=== PATIENT | female | born 1985 | race African-American/Black ===

== ENCOUNTER 2017-03-12 08:38 | Emergency (ER) | payer SELFPAY ==
[2017-03-12 08:50] VITALS: BP 118/76; PULSE 71; TEMP 98; BMI 26.6
[2017-03-12 09:52] LABS: BASOPHIL 0.5 % (0-2.0); EOSINOPHIL 0.9 % (0-4.5); MCHC 33.9 g/dl (32.0-36.0); MEAN CELL VOLUME 94.4 fl (80-96); MEAN PLT VOLUME 8.2 fl (7.5-11.1); PLATELET COUNT 268 K/MM3 (134-434); RDW 12.8 % (11.6-15.6); WHITE BLOOD COUNT 8.8 K/mm3 (4.0-10.0)
[2017-03-12 09:53] LABS: URINE APPEARANCE CLEAR; URINE BILIRUBIN NEGATIVE (NEGATIVE); URINE BLOOD 3+ (NEGATIVE); URINE COLOR YELLOW; URINE GLUCOSE (UA) NEGATIVE (NEGATIVE); URINE KETONE NEGATIVE (NEGATIVE); URINE LEUK ESTERASE TRACE (NEGATIVE); URINE NITRITE NEGATIVE (NEGATIVE); URINE UROBILINOGEN NEGATIVE mg/dL (0.2-1.0)
[2017-03-12 09:54] LABS: URINE PROTEIN 1+ (NEGATIVE)
[2017-03-12 10:03] LABS: URINE BACTERIA RARE /hpf (NONE SEEN); URINE HYALINE CAST 1 /lpf; URINE MUCUS RARE; URINE RBC 34 /hpf (0-3); URINE WBC 7 /hpf (3-5)
--- NOTE | 2017-03-12 10:05 | PDOC ---
History of Present Illness - General Chief Complaint: Vaginal Bleeding Stated Complaint: VAGINAL BLEEDING, 6 WKS Time Seen by Provider: 03/12/17 09:06 History Source: Patient Exam Limitations: No Limitations - History of Present Illness Initial Comments: 03/12/17 10:05 CHIEF COMPLAINT: Vaginal bleeding HISTORY OF PRESENT ILLNESS: This is an otherwise healthy 31 year old female LMP 01/26 who presents to the ED complaining of of vaginal bleeding (nearly saturating one pad) since morning. She has not yet had an ultrasound for this . Vital signs on arrival are unremarkable. Patient plans to obtain central services tech care at [facility]. REVIEW OF SYSTEMS: GENERAL/CONSTITUTIONAL: No fever or chills. No weakness. No weight change. CARDIOVASCULAR: No chest pain or palpitations. RESPIRATORY: No cough, wheezing, or shortness of breath. GASTROINTESTINAL: No nausea, vomiting, diarrhea or constipation. GENITOURINARY: See HPI. MUSCULOSKELETAL: No joint or muscle swelling or pain. No neck or back pain. SKIN: No rash or easy bruising. NEUROLOGIC: No headache, vertigo, loss of consciousness, or loss of sensation. HEMATOLOGIC/LYMPHATIC: No anemia, easy bleeding, or history of blood clots. ALLERGIC/IMMUNOLOGIC: No hives or skin allergy. No latex allergy. PHYSICAL EXAM: GENERAL: The patient is awake, alert, and fully oriented, in no acute distress. ENT: Pupils equal, round and reactive to light, extraocular movements intact, sclera anicteric, conjunctiva clear. Neck supple. LUNGS: Clear to auscultation bilaterally. Normal excursion. No respiratory distress or use of accessory muscles. CV: RRR, S1/S2, no MRG. Cap refill < 2 sec. ABDOMEN: Soft, non-distended, non-tender. EXTREMITIES: Normal range of motion, no edema. NEUROLOGICAL: Normal speech, normal gait. CN II-XII grossly intact. SKIN: Warm, dry, normal turgor, no rashes or lesions noted. CRYSTAL GROWING TECHNICIAN: Normal external exam. Moderate dark blood and clots in vaginal vault. Cervix long, closed, anterior. No adnexal tenderness. Past History - Past Medical History Allergies/Adverse Reactions: Allergies Allergy/AdvReac Type Severity Reaction Status Date / Time No Known Allergies Allergy Verified 03/12/17 08:45 Home Medications: Ambulatory Orders NK [No Known Home Medication] 03/12/17 Other medical history: DENIES - Immunization History Immunization Up to Date: Yes - Psycho/Social/Smoking Cessation Hx Suicidal Ideation: No Smoking History: Never smoked Information on smoking cessation initiated: No Hx Alcohol Use: No Drug/Substance Use Hx: No Substance Use Type: None *Physical Exam - Vital Signs Last Vital Signs Temp Pulse Resp BP Pulse Ox 98.0 F 71 17 118/76 99 03/12/17 08:46 03/12/17 08:46 03/12/17 08:46 03/12/17 08:46 03/12/17 08:46 ED Treatment Course - LABORATORY CBC & Chemistry Diagram: 03/12/17 09:31 03/12/17 09:31 - ADDITIONAL ORDERS Additional order review: Laboratory Results 03/12/17 09:31 Urine Color Yellow Urine Appearance Clear Urine pH 5.0 Urine Protein 1+ H Urine Glucose (UA) Negative Urine Ketones Negative Urine Blood 3+ H Urine Nitrite Negative Urine Bilirubin Negative Urine Urobilinogen Negative Ur Leukocyte Esterase Trace 03/12/17 09:31 RBC 4.16 MCV 94.4 MCHC 33.9 RDW 12.8 MPV 8.2 Neutrophils % 67.0 Lymphocytes % 23.7 Monocytes % 7.9 Eosinophils % 0.9 Basophils % 0.5 - RADIOLOGY Radiology Studies Ordered: Category Date Time Status <14WKS US [US] Stat Ultrasound 03/12/17 10:04 Ordered Medical Decision Making - Medical Decision Making 03/12/17 10:14 A/P: 31 year old female with first trimester vaginal bleeding. 1. Labs including CBC, bhcg, T&S, UA/culture 2. Transvaginal u.s 3. Reassess 03/12/17 10:55 Bhcg [id number] 03/12/17 12:07 U/s reviewed and interpreted by radiology: single, live IUP with estimated gestational age 7 weeks 1 day. FHR 128 bpm. *DC/Admit/Observation/Transfer Diagnosis at time of Disposition: Threatened - Discharge Dispostion Disposition: HOME Condition at time of disposition: Stable Admit: No - Referrals Referrals: Ari Martinez [Primary Care Provider] - - Patient Instructions Printed Discharge Instructions: DI for Threatened Additional Instructions: -Rest and avoid heavy lifting and sexual activity -Follow up with your accounting assistant this week -Return here for heavy bleeding (more than one pad per hour) or any other concerning symptoms - Post Discharge Activity Work/School Note: Back to Work
[2017-03-12 10:15] LABS: ALBUMIN 3.4 g/dl (3.4-5.0); ALK PHOS 49 U/L (45-117); ANION GAP 7 (8-16); BILIRUBIN,TOTAL 0.8 mg/dL (0.2-1.0); CALCIUM 9.1 mg/dL (8.5-10.1); CO2 25 mmol/L (21-32); CREATININE 0.8 mg/dL (0.55-1.02); GLUCOSE,RANDOM 78 mg/dL (74-106); SGOT/AST 14 U/L (15-37); SGPT/ALT 34 U/L (12-78); TOT PROT 7.3 g/dl (6.4-8.2)
--- NOTE | 2017-03-12 11:27 | PDOC ---
*Physical Exam - Vital Signs Last Vital Signs Temp Pulse Resp BP Pulse Ox 98.0 F 71 17 118/76 99 03/12/17 08:46 03/12/17 08:46 03/12/17 08:46 03/12/17 08:46 03/12/17 08:46 ED Treatment Course - LABORATORY CBC & Chemistry Diagram: 03/12/17 09:31 03/12/17 09:31 - ADDITIONAL ORDERS Additional order review: Laboratory Results 03/12/17 03/12/17 03/12/17 09:31 09:31 09:31 Sodium 136 Potassium 4.1 Chloride 104 Carbon Dioxide 25 Anion Gap 7 L BUN 7 Creatinine 0.8 Creat Clearance w eGFR > 60 Random Glucose 78 Calcium 9.1 Total Bilirubin 0.8 AST 14 L ALT 34 Alkaline Phosphatase 49 Total Protein 7.3 Albumin 3.4 Beta HCG, Quant 50818.6 Urine Color Yellow Urine Appearance Clear Urine pH 5.0 Urine Protein 1+ H Urine Glucose (UA) Negative Urine Ketones Negative Urine Blood 3+ H Urine Nitrite Negative Urine Bilirubin Negative Urine Urobilinogen Negative Ur Leukocyte Esterase Trace Urine RBC 34 Urine WBC 7 Ur Epithelial Cells Rare Urine Bacteria Rare Hyaline Casts 1 Urine Mucus Rare Blood Type A NEGATIVE Antibody Screen Negative 03/12/17 09:31 RBC 4.16 MCV 94.4 MCHC 33.9 RDW 12.8 MPV 8.2 Neutrophils % 67.0 Lymphocytes % 23.7 Monocytes % 7.9 Eosinophils % 0.9 Basophils % 0.5 Medical Decision Making - Medical Decision Making 03/12/17 12:15 Agree with LOG CHAIN FEEDER's evaluation, assessment, and plan. 31 F @ 8 weeks gestation with vaginal bleeding. No abdominal pain. Exam notable for blood in vault with closed os. Abdomen benign. TVUS with confirmed IUP. Pt to f/u with OB this week. Rhogam administered *DC/Admit/Observation/Transfer Diagnosis at time of Disposition: Threatened - Referrals Referrals: Ari Martinez [Primary Care Provider] - - Patient Instructions Printed Discharge Instructions: DI for Threatened Additional Instructions: -Rest and avoid heavy lifting and sexual activity -Follow up with your rock star this week -Return here for heavy bleeding (more than one pad per hour) or any other concerning symptoms - Post Discharge Activity Work/School Note: Back to Work - Attestations Physician Attestion: 03/12/17 12:19 I, Dr. Temo Tafoya MD, attest that this document has been prepared under my direction and personally reviewed by me in its entirety. I further attest, that it accurately reflects all work, treatment, procedures and medical decision -making performed by me.
[2017-03-12] MEDS ORDERED: RHO(D) IMMUNE GLOBULIN 1,500 UNIT DISP.SYRIN IM ONE (12:09)
== END 2017-03-12 13:31 | disposition home or self-care (01) ==
LOC: JER 08:38
DX: O26.891 Other specified pregnancy related conditions, first trimester (principal); O20.0 Threatened abortion; Z3A.01 Less than 8 weeks gestation of pregnancy
CPT/HCPCS: 36415; 76801-TC; 80053; 81003; 81015; 84702; 85025; 86850; 86900; 86901; 86999; 87086; 99282-25; J1561